=== PATIENT | male | born 1990 | race Caucasian/White ===

== ENCOUNTER 2023-10-04 19:00 | Emergency (ER) | payer OTHER ==
[2023-10-04 19:15] VITALS: BP 160/80; O2SAT 99
--- NOTE | 2023-10-04 20:17 | ED Physician Documentation ---
History of Present Illness - Stated complaint Stated Complaint: RED LINES ON RT LEG - Chief complaint Chief Complaint: Laceration - History obtained from History obtained from: Patient - History of Present Illness Timing: Today - Additonal information Additional information: 33-year-old male presents to the emergency department stating that he was pinched by a crab on the back of his right leg. He states that he noticed small red lines traveling down the leg. No fevers. No chills. Nothing makes it better or worse. Occurred about 6 hours ago. Patient states his last tetanus shot was a few weeks ago. Review of Systems Constitutional: denies: Fever, Chills PD PAST MEDICAL HISTORY - Past Medical History Past Medical History: Yes Psych: ADD/ADHD - Past Surgical History Past Surgical History: Yes General: Other - Present Medications Home Medications: Ambulatory Orders Medication Instructions Recorded Confirmed Ciprofloxacin HCl [Cipro] 500 mg PO BID #14 tablet 10/04/23 Dextroamphetamine/Amphetamine 20 mg PO DAILY 10/04/23 10/04/23 [Adderall 20 mg Tablet] cephALEXin [Keflex] 500 mg PO Q6H #28 cap 10/04/23 - Allergies Allergies/Adverse Reactions: Allergies Allergy/AdvReac Type Severity Reaction Status Date / Time Iodinated Contrast Media Allergy Itching Verified 10/04/23 19:05 - Social History Does the pt smoke?: No Smoking Status: Never smoker Does the pt drink ETOH?: Yes Does the pt have substance abuse?: No - Immunizations Immunizations are current?: Yes Immunizations: TDAP current <10years - POLST Patient has POLST: No PD ED PE NORMAL - Vitals Vital signs reviewed: Yes - General General: Alert and oriented X 3, No acute distress - Derm Derm: Warm and dry - Extremities Extremities: Other (R calf - Mild erythematous streaking on the posterior medial aspect of the calf, approximately 6 cm in length.) - Neuro Neuro: Alert and oriented X 3 Results - Vitals Vitals: Vital Signs - 24 hr 10/04/23 19:05 Temperature 36.5 C Heart Rate 86 Respiratory 16 Rate Blood Pressure 160/80 H O2 Saturation 99 Oxygen O2 Source Room air PD Medical Decision Making - ED course Complexity details: considered differential, d/w patient ED course: 33-year-old male with redness to the right calf after being pinched by a crab. Not typical for cellulitis, but given the wound, will cover with antibiotics and see how this progresses over the next 24 hours. Will cover with ciprofloxacin for salt water bacteria. Will also add Keflex. Will have him follow-up closely with his doctor, return here if he fails to improve or worsens. Patient counseled regarding signs and symptoms for which I believe and urgent re- evaluation would be necessary. Patient with good understanding of and agreement to plan and is comfortable going home at this time This document was made in part using voice recognition software. While efforts are made to proofread this document, sound alike and grammatical errors may occur. Departure - Departure Disposition: Home, Self Care Clinical Impression: Cellulitis Qualifiers: Site of cellulitis: extremity Site of cellulitis of extremity: lower extremity Laterality: right Qualified Code(s): L03.115 - Cellulitis of right lower limb Condition: Good Instructions: ED Infec Skin Cellulitis Follow-Up: your,doctor in 1 week for wound check if not better [Other] Prescriptions: Ciprofloxacin HCl [Cipro] 500 mg PO BID #14 tablet cephALEXin [Keflex] 500 mg PO Q6H #28 cap Comments: Your prescription was to [facility] in [place]. Please take the antibiotics as prescribed. You should notice improvement within the next 24 hours. Return if you have worsening symptoms, worsening redness, swelling, fevers, chills or other new or worrisome symptoms. Forms: PCP List Discharge Date/Time: 10/04/23 20:32
[2023-10-04] MEDS: cephALEXin 250 MG CAPSULE PO STA (20:27)
[2023-10-04] MEDS: CIPROFLOXACIN 250 MG TABLET PO STA (20:27)
== END 2023-10-04 20:32 | disposition home or self-care (01) ==
LOC: ED 19:00
DX: L03.115 Cellulitis of right lower limb (principal); W56.81XA Bitten by other nonvenomous marine animals, initial encounter
CPT/HCPCS: 99283; A9270